=== PATIENT | male | born 1950 | race Caucasian/White ===

== ENCOUNTER → 2017-05-28 | Outpatient (CLI) | payer MEDICARE, OTHER ==
[~2017-05-28] MED LIST: ELIQUIS 5MG PO; LEXAPRO 10MG10 MG PO; PRINIVIL20 MG PO; REQUIP5 MG PO; RISPERDAL 1M1 MG/TAB PO; TOPROL XL 50MG50 MG PO; TRILEPTAL 300M300 MG PO; WELLBUTRIN XL300 M1 PO
== END ==
LOC: COL.VAS 13:39
DX: I82.4Z1 Acute embolism and thrombosis of unspecified deep veins of right distal lower extremity (principal); M79.89 Other specified soft tissue disorders

== ENCOUNTER 2017-06-04 09:18 | Day surgery (SDC) | payer MEDICARE, OTHER ==
[2017-06-04] VITALS (12 sets, daily range): BP systolic 151–183; BP diastolic 84–115; PULSE 51–72; TEMP 98.4–98.6
[~2017-06-04] VITALS: Ht 185.4 cm; Wt 114.0 kg
[2017-06-04] MEDS ORDERED: WELLBUTRIN XL300 M1 PO (10:10)
[2017-06-04] MEDS ORDERED: TRILEPTAL 300M300 MG PO (10:11)
[2017-06-04] MEDS ORDERED: TOPROL XL 50MG50 MG PO (10:12)
[2017-06-04] MEDS ORDERED: RISPERDAL 1M1 MG/TAB PO (10:12)
[2017-06-04] MEDS ORDERED: REQUIP5 MG PO (10:13)
[2017-06-04] MEDS ORDERED: PRINIVIL20 MG PO (10:14)
[2017-06-04] MEDS ORDERED: LEXAPRO 10MG10 MG PO (10:14)
[2017-06-04] MEDS ORDERED: ELIQUIS 5MG PO (10:15)
[2017-06-04 10:39] LABS: HEMOGLOBIN 14.9 g/dl (13.5-18.0); MEAN CELL VOLUME 92 fl (80.0-100.0); MEAN CORPUSCULAR HEMOGLOBIN 34 pg (27.0-31.0); MEAN CORPUSCULAR HGB CONC 36 g/dl (33.0-37.0); MEAN PLATELET VOLUME 9.3 fl (7.4-10.4); PLATELET COUNT 136 K/mm3 (130-400); RED BLOOD COUNT 4.44 M/mm3 (4.20-5.60); REDCELL DISTRIBUTION WIDTH-CV 12.8 % (11.5-14.5); WHITE BLOOD COUNT 5.1 K/mm3 (4.8-10.8)
[2017-06-04 10:52] LABS: CREATININE, serum 0.97 mg/dL (0.66-1.25)
[2017-06-04 10:53] LABS: PROTHROMBIN TIME 11.3 SECONDS (9.7-12.8)
== END 2017-06-04 17:20 | disposition home or self-care (01) ==
LOC: COL.CAR 09:18
PROVIDERS: Radiology Diagnostic Radiology
DX: I82.411 Acute embolism and thrombosis of right femoral vein (principal); I82.431 Acute embolism and thrombosis of right popliteal vein; I10 Essential (primary) hypertension; I77.1 Stricture of artery; N52.03 Combined arterial insufficiency and corporo-venous occlusive erectile dysfunction; G25.81 Restless legs syndrome; E11.9 Type 2 diabetes mellitus without complications; G47.33 Obstructive sleep apnea (adult) (pediatric); F31.9 Bipolar disorder, unspecified; N40.0 Benign prostatic hyperplasia without lower urinary tract symptoms; Z87.891 Personal history of nicotine dependence
CPT/HCPCS: C1757; C1769; C1887; C1894; J0360; J1644; J2250; J2997; J3010; J7030; J7120; Q9967

== ENCOUNTER 2017-11-10 19:51 | Emergency (ER) | payer MEDICARE, OTHER ==
[~2017-11-10] VITALS: Ht 185.4 cm; Wt 113.6 kg
[2017-11-10 19:54] VITALS: BP 151/77; TEMP 100.3
[2017-11-10 21:00] LABS: INFLUENZA A POSITIVE; INFLUENZA B NEGATIVE
[2017-11-10] MEDS ORDERED: TESSALON P100 MG/CAP PO (21:05)
[2017-11-10] MEDS ORDERED: TAMIFLU 75MG75 MG PO (21:15)
[2017-11-10 21:40] VITALS: PULSE 89
== END 2017-11-10 21:40 | disposition home or self-care (01) ==
LOC: COL.ER 19:51
PROVIDERS: Physician Assistant
DX: J09.X9 Influenza due to identified novel influenza A virus with other manifestations (principal); I10 Essential (primary) hypertension; F32.9 Major depressive disorder, single episode, unspecified; F41.9 Anxiety disorder, unspecified; I82.409 Acute embolism and thrombosis of unspecified deep veins of unspecified lower extremity; Z87.891 Personal history of nicotine dependence; Z79.01 Long term (current) use of anticoagulants

== ENCOUNTER → 2017-11-23 | Outpatient (CLI) | payer MEDICARE, OTHER ==
[~2017-11-23] MED LIST changes: +TAMIFLU 75MG75 MG PO; +TESSALON P100 MG/CAP PO
== END ==
LOC: COL.RAD 07:25
DX: I77.810 Thoracic aortic ectasia (principal)
CPT/HCPCS: J7050; Q9967

== ENCOUNTER → 2017-12-08 | Outpatient (CLI) | payer MEDICARE, OTHER | LOC: COL.VAS 12:25 | DX: I82.531 Chronic embolism and thrombosis of right popliteal vein (principal) ==

== ENCOUNTER → 2018-05-12 | Outpatient (CLI) | payer MEDICARE, OTHER | LOC: COL.PUL 07:36 | DX: R06.02 Shortness of breath (principal); R06.2 Wheezing ==

== ENCOUNTER 2018-06-03 02:20 | Emergency (ER) | payer MEDICARE, OTHER ==
[~2018-06-03] VITALS: Ht 185.4 cm; Wt 115.9 kg
[2018-06-03 02:23] VITALS: BP 138/77; TEMP 97.8
[2018-06-03] MEDS ORDERED: NORCO 325 MG-51 TAB PO (02:42)
[2018-06-03 02:59] VITALS: PULSE 80
== END 2018-06-03 02:59 | disposition home or self-care (01) ==
LOC: COL.ER 02:20
DX: M26.621 Arthralgia of right temporomandibular joint (principal)

== ENCOUNTER → 2019-03-10 | Outpatient (CLI) | payer MEDICARE, OTHER ==
[~2019-03-10] MED LIST changes: +NORCO 325 MG-51 TAB PO
== END ==
LOC: COL.RAD 08:38
DX: R56.9 Unspecified convulsions (principal); R41.82 Altered mental status, unspecified
CPT/HCPCS: A9585

== ENCOUNTER → 2019-04-25 | Outpatient (CLI) | payer MEDICARE, OTHER | LOC: COL.CARD 09:02 | DX: R56.9 Unspecified convulsions (principal) ==

== ENCOUNTER → 2019-11-14 | Outpatient (CLI) | payer MEDICARE, OTHER | LOC: COL.RAD 06:47 | DX: K21.9 Gastro-esophageal reflux disease without esophagitis (principal) | CPT/HCPCS: A9541 ==

== ENCOUNTER → 2019-11-29 | Outpatient (CLI) | payer MEDICARE, OTHER | LOC: COL.RAD 06:59 | DX: K21.9 Gastro-esophageal reflux disease without esophagitis (principal) ==

== ENCOUNTER → 2020-01-19 | Outpatient (CLI) | payer MEDICARE, OTHER | LOC: COL.RAD 09:19 | DX: R68.81 Early satiety (principal); R10.13 Epigastric pain | CPT/HCPCS: A9537; J2805 ==

== ENCOUNTER 2020-12-10 21:12 | Emergency (ER) | payer MEDICARE, OTHER ==
[~2020-12-10] VITALS: Ht 182.9 cm; Wt 111.4 kg
[2020-12-10 21:18] VITALS: TEMP 98.3
[2020-12-10] MEDS ORDERED: CLEOCIN HCL300 MG PO (21:35)
[2020-12-10 22:08] VITALS: BP 126/83; PULSE 86
== END 2020-12-10 22:21 | disposition home or self-care (01) ==
LOC: COL.ER 21:12
DX: L03.032 Cellulitis of left toe (principal); M26.621 Arthralgia of right temporomandibular joint; J10.1 Influenza due to other identified influenza virus with other respiratory manifestations; Z88.1 Allergy status to other antibiotic agents

== ENCOUNTER 2022-04-14 07:53 | Day surgery (SDC) | payer MEDICARE, OTHER ==
[~2022-04-14] VITALS: Ht 182.9 cm; Wt 109.1 kg
[~2022-04-14 07:53] MED LIST changes: +CLEOCIN HCL300 MG PO
[2022-04-14 08:36] VITALS: BP 108/69; PULSE 72; TEMP 98.5
[2022-04-14] MEDS ORDERED: LOTENSIN40 MG PO (08:47)
[2022-04-14] MEDS ORDERED: PROVENTIL0.09 MG/A1 IH (08:48)
[2022-04-14] MEDS ORDERED: ZYLOPRIM 100MG100 MG PO (08:48)
[2022-04-14] MEDS ORDERED: CALCIPOTRIENE0.0051 TP (08:50)
[2022-04-14] MEDS ORDERED: RETIN-A CR0.1 45GM TP (08:51)
[2022-04-14] MEDS ORDERED: TEMOVATE0.05% TP (08:51)
[2022-04-14] MEDS ORDERED: [UNRECOGNIZED DRUG - OTHER] TOP (08:53)
[2022-04-14] MEDS ORDERED: LOPRESSOR 550 MG/TAB PO (08:53)
[2022-04-14] MEDS ORDERED: 00186-0372-20 IH (09:00)
[2022-04-14] MEDS ORDERED: ASPIRIN E.C. 8181 MG PO (09:01)
[2022-04-14] MEDS ORDERED: JANUVIA25 MG PO (09:01)
[2022-04-14 10:00] VITALS: BP 95/46; PULSE 73; TEMP 98
--- NOTE | 2022-04-14 10:00 | NUR ---
Pt returned from OR via cart to [facility]. A&O. ABD and mesh underwear in place. VSS-see flowsheet. Given a muffin and coffee per request. remains in room. Denies complaints or needs. Side rails up and call light placed in reach.
[2022-04-14 10:15] VITALS: BP 111/68; PULSE 74
[2022-04-14] MEDS ORDERED: NORCO 325 MG-51 TAB PO (10:20)
[2022-04-14 10:30] VITALS: BP 98/58; PULSE 74
[2022-04-14 10:45] VITALS: BP 107/57; PULSE 73
--- NOTE | 2022-04-14 11:20 | NUR ---
Pts VS remain stable. Tolerated oral intake. Denies pain or other complaints. IV removed, pressure dressing applied. Pt dressed independently. DC teaching completed, pt and pts verbalized understanding. Pt taken via wheelchair to private vehicle for dc home with to drive. Pt left with all personal belongings.
== END 2022-04-14 11:20 | disposition home or self-care (01) ==
LOC: SDCO 07:53
DX: K64.5 Perianal venous thrombosis (principal); K64.0 First degree hemorrhoids; I10 Essential (primary) hypertension; E11.9 Type 2 diabetes mellitus without complications; G47.33 Obstructive sleep apnea (adult) (pediatric); F31.9 Bipolar disorder, unspecified; R56.9 Unspecified convulsions; Z79.84 Long term (current) use of oral hypoglycemic drugs; Z87.891 Personal history of nicotine dependence; Z79.82 Long term (current) use of aspirin; Z79.51 Long term (current) use of inhaled steroids
CPT/HCPCS: J2704; J3010

== ENCOUNTER 2022-11-24 10:47 | Emergency (ER) | payer MEDICARE, OTHER ==
[~2022-11-24] VITALS: Ht 185.4 cm; Wt 111.4 kg
[~2022-11-24 10:47] MED LIST changes: +00186-0372-20 IH; +ASPIRIN E.C. 8181 MG PO; +CALCIPOTRIENE0.0051 TP; +JANUVIA25 MG PO; +LOPRESSOR 550 MG/TAB PO; +LOTENSIN40 MG PO; +PROVENTIL0.09 MG/A1 IH; +RETIN-A CR0.1 45GM TP; +TEMOVATE0.05% TP; +ZYLOPRIM 100MG100 MG PO; +[UNRECOGNIZED DRUG - OTHER] TOP
[2022-11-24 11:02] VITALS: TEMP 98.2
[2022-11-24 12:11] LABS: HEMATOCRIT 42.5 % (42.0-52.0); HEMOGLOBIN 15.2 g/dl (13.5-18.0); MEAN CELL VOLUME 94 fl (80.0-100.0); MEAN CORPUSCULAR HEMOGLOBIN 34 pg (27-31); MEAN CORPUSCULAR HGB CONC 36 g/dl (33.0-37.0); MEAN PLATELET VOLUME 9.7 fl (7.4-10.4); PLATELET COUNT 161 K/mm3 (130-400); RED BLOOD COUNT 4.54 M/mm3 (4.20-5.60); REDCELL DISTRIBUTION WIDTH-CV 13.6 % (11.5-14.5)
[2022-11-24 12:17] LABS: ACETONE,SERUM NEGATIVE
[2022-11-24 12:19] LABS: ALBUMIN 3.6 gm/dL (3.4-4.8); ANION GAP 13 mmol/L (7-16); BLOOD UREA NITROGEN 38 mg/dL (8-26); CALCIUM 9.5 mg/dL (8.4-10.2); CARBON DIOXIDE 23 mmol/L (23-31); CHLORIDE 100 mmol/L (98-107); CREATININE, serum 1.57 mg/dL (0.72-1.25); GLUCOSE 374 mg/dL (70-99); MAGNESIUM 2.2 mg/dL (1.6-2.6); PHOSPHOROUS 4.4 mg/dL (2.3-4.7); POTASSIUM 4.8 mmol/L (3.5-4.5); SODIUM 136 mmol/L (136-145)
[2022-11-24 12:48] LABS: BAND 17 % (0-10); EOSINOPHIL 2 % (0-4); NEUTROPHILS 70 % (42.0-75.2)
[2022-11-24 12:50] LABS: LYMPHOCYTE 6 % (20.0-51.0); PLATELET ESTIMATE NORMAL (NORMAL)
[2022-11-24 12:52] VITALS: BP 122/82; PULSE 67
[2022-12-02] MEDS ORDERED: FLOMAX 0.40.4 MG/CAP PO (09:38)
[2022-12-02] MEDS ORDERED: NEURONTIN300 MG/CAP PO (10:15)
[2022-12-02] MEDS ORDERED: DYAZIDE 25 MG-31 CAP PO (10:16)
[2022-12-05] MEDS ORDERED: TOPROL XL 50MG50 MG PO (08:56)
[2022-12-05] MEDS ORDERED: FLAGYL500 MG PO (09:00)
[2022-12-05] MEDS ORDERED: OMNICEF 300MG300 MG PO (09:01)
== END 2022-11-24 12:59 | disposition home or self-care (01) ==
LOC: COL.ER 10:47
PROVIDERS: Emergency Medicine
DX: E09.65 Drug or chemical induced diabetes mellitus with hyperglycemia (principal); T38.0X5A Adverse effect of glucocorticoids and synthetic analogues, initial encounter; J44.1 Chronic obstructive pulmonary disease with (acute) exacerbation
CPT/HCPCS: J7120

== ENCOUNTER 2024-06-26 10:05 | Inpatient (IN) | payer MEDICARE, OTHER ==
[2024-06-26] VITALS (8 sets, daily range): BP systolic 101–136; BP diastolic 54–85; PULSE 69–128; TEMP 98.6–99.6
[~2024-06-26] VITALS: Ht 182.9 cm; Wt 112.7 kg
[~2024-06-26 10:05] MED LIST changes: +DYAZIDE 25 MG-31 CAP PO; +FLAGYL500 MG PO; +FLOMAX 0.40.4 MG/CAP PO; -JANUVIA25 MG PO; +JANUVIA50 MG PO; +NEURONTIN300 MG/CAP PO; +OMNICEF 300MG300 MG PO
[2024-06-26] MEDS ORDERED: dilTIAZem 25 MG/5 ML VIAL IV ONE ×2 (10:30→10:45)
[2024-06-26] MEDS ORDERED: NS 1,000 ML IV ONE ×2 (10:30→11:45)
[2024-06-26 10:32] LABS: BASO % 0.4 % (0.0-2.0); EOS # 0.1 K/mm3 (0.0-0.7); EOS % 1.6 % (0.0-4.0); GRAN # 7.3 K/mm3 (1.4-6.5); GRAN % 82.3 % (42.2-75.2); HEMATOCRIT 45.9 % (42.0-52.0); HEMOGLOBIN 16.2 g/dl (13.5-18.0); LYMPH # 0.7 K/mm3 (1.2-3.4); LYMPH % 7.5 % (20.0-51.0); MEAN CELL VOLUME 95 fl (80.0-100.0); MEAN CORPUSCULAR HEMOGLOBIN 34 pg (27-31); MEAN CORPUSCULAR HGB CONC 35 g/dl (33.0-37.0); MEAN PLATELET VOLUME 10.3 fl (7.4-10.4); MONO # 0.7 K/mm3 (0.1-0.6); MONO % 7.8 % (1.7-9.3); PLATELET COUNT 145 K/mm3 (130-400); RED BLOOD COUNT 4.84 M/mm3 (4.20-5.60)
[2024-06-26 10:55] LABS: ALBUMIN 3.6 g/dL (3.4-4.8); BILIRUBIN,TOTAL 10.4 mg/dL (0.2-1.2); CREATININE, serum 1.35 mg/dL (0.72-1.25); POTASSIUM 4.1 mEq/L (3.5-4.5); TOTAL PROTEIN 7.2 g/dl (6.2-8.1)
[2024-06-26 11:01] LABS: TROPONIN-I 0.022 ng/mL (0.00-0.033)
[2024-06-26] MEDS ORDERED: Iohexol 300 - 100 ML VIAL IV ONE (12:53)
[2024-06-26] MEDS ORDERED: Digoxin 0.25 MG/ML 2 ML VIAL IV ONE (13:00)
[2024-06-26] MEDS ORDERED: AMITRIPTYLINE H25 M1 PO (13:48)
[2024-06-26] MEDS ORDERED: LOPRESSOR 550 MG/TAB PO (13:49)
[2024-06-26] MEDS ORDERED: PLAVIX 75MG TAB75 MG PO (13:51)
[2024-06-26] MEDS ORDERED: RT ADVAIR HFA 1112 G IH (13:52)
[2024-06-26] MEDS ORDERED: [UNRECOGNIZED DRUG - OTHER] IM (13:55)
[2024-06-26] MEDS ORDERED: *Potassium Replacement Protocol MC SCH (14:30)
[2024-06-26] MEDS ORDERED: NS 1,000 ML IV SCH (14:30)
[2024-06-26] MEDS ORDERED: Escitalopram 10 MG TAB PO SCH (15:40)
[2024-06-26] MEDS ORDERED: Clopidogrel 75 MG TAB PO SCH (15:40)
[2024-06-26] MEDS ORDERED: LANTUS SOLOS100 U/ML SQ (15:54)
[2024-06-26] MEDS ORDERED: Glucagon 1 MG VIAL IM PRN (16:00)
[2024-06-26] MEDS ORDERED: Dextrose (Glucose) 15 GM (4 x 3.75 GM) Chewable TABLET PACK PO PRN (16:00)
[2024-06-26] MEDS ORDERED: Dextrose 50% Water 25 GM/50 ML SYRINGE IV PRN (16:00)
[2024-06-26] MEDS ORDERED: LORazepam 2 MG/ML 1 ML VIAL IV PRN (17:00)
[2024-06-26] MEDS ORDERED: Mag/Al Hydrox/Simeth Susp 30 ML CUP PO PRN (17:00)
[2024-06-26] MEDS ORDERED: Multivitamin TAB PO SCH (17:00)
[2024-06-26 17:32] LABS: INR 1.1 (0.8-3.0); PROTHROMBIN TIME 12.2 SECONDS (9.7-12.8)
[2024-06-26 17:35] LABS: PARTIAL THROMBOPLASTIN TIME 29.5 SECONDS (26.0-37.0)
[2024-06-26] MEDS ORDERED: Insulin Lispro (HumaLOG) SQ SCH (18:00)
[2024-06-26] MEDS ORDERED: Metoprolol Tartrate 50 MG TAB PO SCH ×2 (21:00)
[2024-06-26] MEDS ORDERED: Thiamine 100 MG TAB PO SCH (21:00)
[2024-06-26] MEDS ORDERED: Gabapentin 300 MG CAP PO SCH (21:00)
[2024-06-26] MEDS ORDERED: rOPINIRole 1 MG TAB PO SCH (21:00)
[2024-06-27] VITALS (12 sets, daily range): BP systolic 104–150; BP diastolic 56–74; PULSE 59–66; TEMP 97.8–98.8
[2024-06-27] MEDS ORDERED: NS 1,000 ML IV SCH (06:00)
[2024-06-27 06:30] LABS: BASO % 0.3 % (0.0-2.0); EOS # 0.1 K/mm3 (0.0-0.7); EOS % 1.9 % (0.0-4.0); GRAN # 4.8 K/mm3 (1.4-6.5); GRAN % 80.6 % (42.2-75.2); LYMPH # 0.5 K/mm3 (1.2-3.4); LYMPH % 7.8 % (20.0-51.0); MEAN CELL VOLUME 92 fl (80.0-100.0); MEAN CORPUSCULAR HGB CONC 36 g/dl (33.0-37.0); MEAN PLATELET VOLUME 10.2 fl (7.4-10.4); MONO # 0.5 K/mm3 (0.1-0.6); MONO % 8.7 % (1.7-9.3); PLATELET COUNT 119 K/mm3 (130-400); RED BLOOD COUNT 3.97 M/mm3 (4.20-5.60)
[2024-06-27 06:36] LABS: HEMATOCRIT 36.6 % (42.0-52.0); HEMOGLOBIN 13.2 g/dl (13.5-18.0); MEAN CORPUSCULAR HEMOGLOBIN 33 pg (27-31)
[2024-06-27 06:49] LABS: ALBUMIN 2.7 g/dL (3.4-4.8); CALCIUM 8.7 mg/dL (8.4-10.2); CREATININE, serum 1.27 mg/dL (0.72-1.25); MAGNESIUM 1.6 mg/dL (1.6-2.6); PHOSPHOROUS 2.4 mg/dL (2.3-4.7); POTASSIUM 3.9 mEq/L (3.5-4.5)
[2024-06-27] MEDS ORDERED: Folic Acid 1 MG TAB PO SCH (09:00)
[2024-06-27] MEDS ORDERED: Allopurinol 100 MG TAB PO SCH (09:00)
[2024-06-27] MEDS ORDERED: Magnesium Oxide 400 MG TAB PO SCH (09:38)
[2024-06-27 09:42] LABS: ALBUMIN 2.9 g/dL (3.4-4.8); BILIRUBIN,TOTAL 9.6 mg/dL (0.2-1.2); CALCIUM 9.1 mg/dL (8.4-10.2); CREATININE, serum 1.34 mg/dL (0.72-1.25); POTASSIUM 3.8 mEq/L (3.5-4.5); TOTAL PROTEIN 6.2 g/dl (6.2-8.1)
[2024-06-27] MEDS ORDERED: Potassium Chloride 100 ML IV SCH (10:00)
[2024-06-27] MEDS ORDERED: *Potassium Replacement Protocol MC SCH (10:00)
[2024-06-27 10:55] LABS: COLLECTION METHOD CLEAN CATCH
[2024-06-27 11:17] LABS: URINE COLOR Amber (YELLOW)
[2024-06-27 11:18] LABS: PH 5.5 (5.0-8.5); URINE APPEARANCE CLOUDY (CLEAR/HAZY); URINE BLOOD NEGATIVE (NEGATIVE); URINE GLUCOSE NEGATIVE (NEGATIVE); URINE KETONE TRACE (NEGATIVE); URINE NITRATE NEGATIVE (NEGATIVE); URINE PROTEIN(semi-quant) 2+ (BEGATIVE)
[2024-06-27] MEDS ORDERED: Lidocaine PF 2% (20 MG/ML) 5 ML VIAL ONE (11:39)
[2024-06-27] MEDS ORDERED: Iohexol 350 - 100 ML VIAL BILE DUCT ONE (12:14)
[2024-06-27] MEDS ORDERED: Ondansetron 4 MG/2 ML VIAL IV PRN (14:00)
[2024-06-27] MEDS ORDERED: Acetaminophen 325 MG TAB PO PRN (14:00)
[2024-06-27] MEDS ORDERED: Gabapentin 300 MG CAP PO SCH (21:00)
[2024-06-28 01:01] VITALS: BP_SYST 135
[2024-06-28 03:53] VITALS: BP 154/88; PULSE 63; TEMP 98.2
[2024-06-28 04:02] VITALS: BP_SYST 154
[2024-06-28 06:28] LABS: ALBUMIN 2.7 g/dL (3.4-4.8); BILIRUBIN,TOTAL 6.6 mg/dL (0.2-1.2); CALCIUM 8.8 mg/dL (8.4-10.2); CREATININE, serum 1.09 mg/dL (0.72-1.25); MAGNESIUM 1.7 mg/dL (1.6-2.6); POTASSIUM 3.8 mEq/L (3.5-4.5); TOTAL PROTEIN 5.8 g/dl (6.2-8.1)
[2024-06-28 06:32] LABS: BASO % 0.2 % (0.0-2.0); EOS # 0.2 K/mm3 (0.0-0.7); EOS % 2.5 % (0.0-4.0); GRAN # 4.9 K/mm3 (1.4-6.5); GRAN % 81.3 % (42.2-75.2); HEMATOCRIT 36.2 % (42.0-52.0); HEMOGLOBIN 12.9 g/dl (13.5-18.0); LYMPH # 0.4 K/mm3 (1.2-3.4); LYMPH % 7.3 % (20.0-51.0); MEAN CELL VOLUME 93 fl (80.0-100.0); MEAN CORPUSCULAR HEMOGLOBIN 33 pg (27-31); MEAN CORPUSCULAR HGB CONC 36 g/dl (33.0-37.0); MEAN PLATELET VOLUME 10.2 fl (7.4-10.4); MONO # 0.5 K/mm3 (0.1-0.6); MONO % 7.9 % (1.7-9.3); PLATELET COUNT 135 K/mm3 (130-400); RED BLOOD COUNT 3.89 M/mm3 (4.20-5.60); REDCELL DISTRIBUTION WIDTH-CV 13.9 % (11.5-14.5)
[2024-06-28 07:26] VITALS: BP 129/75; PULSE 62; TEMP 98
[2024-06-28] MEDS ORDERED: *Potassium Replacement Protocol MC SCH (07:45)
[2024-06-28] MEDS ORDERED: Potassium Bicarbonate/Citrate 20 MEQ Effervescent TAB PO ONE (07:45)
[2024-06-28 09:00] VITALS: BP_SYST 129
[2024-06-28] MEDS ORDERED: LOPRESSOR100 MG PO (09:28)
[2024-06-28] MEDS ORDERED: FOLIC ACID 11 MG/TA1 PO (09:29)
[2024-06-28] MEDS ORDERED: THIAMINE 1100 MG/TAB PO (09:29)
[2024-06-28] MEDS ORDERED: DUO-KAPS1 CAP PO (09:29)
[2024-06-28] MEDS ORDERED: LEVAQUIN 750MG750 M1 PO (09:30)
== END 2024-06-28 11:30 | disposition home or self-care (01) | DRG 309 ==
LOC: COL.ER 10:05 → MEDICAL 14:03
PROVIDERS: Physician Assistant; ADMIT Internal Medicine
PROC: 0F798DZ Dilation of Common Bile Duct with Intraluminal Device, Via Natural or Artificial Opening Endoscopic (ICD-10-PCS; principal; 2024-06-26)
DX: I48.91 Unspecified atrial fibrillation (principal); K83.09 Other cholangitis; N17.9 Acute kidney failure, unspecified; N18.9 Chronic kidney disease, unspecified; D64.9 Anemia, unspecified; F10.90 Alcohol use, unspecified, uncomplicated; I10 Essential (primary) hypertension; E11.51 Type 2 diabetes mellitus with diabetic peripheral angiopathy without gangrene; N40.0 Benign prostatic hyperplasia without lower urinary tract symptoms; F32.A Depression, unspecified; G25.81 Restless legs syndrome; Z79.84 Long term (current) use of oral hypoglycemic drugs; K26.7 Chronic duodenal ulcer without hemorrhage or perforation
CPT/HCPCS: C1769; C2625; J1160; J1815; J2405; J2543; J2704; J3480; J7030; Q9967

== ENCOUNTER 2024-07-22 10:14 | Emergency (ER) | payer MEDICARE, OTHER ==
[~2024-07-22] VITALS: Wt 111.4 kg
[~2024-07-22 10:14] MED LIST changes: +AMITRIPTYLINE H25 M1 PO; +DUO-KAPS1 CAP PO; +FOLIC ACID 11 MG/TA1 PO; +LANTUS SOLOS100 U/ML SQ; +LEVAQUIN 750MG750 M1 PO; +LOPRESSOR100 MG PO; +PLAVIX 75MG TAB75 MG PO; +RT ADVAIR HFA 1112 G IH; +THIAMINE 1100 MG/TAB PO; +[UNRECOGNIZED DRUG - OTHER] IM
[2024-07-22 10:18] VITALS: TEMP 97.6
[2024-07-22 10:41] LABS: BASO % 0.7 % (0.0-2.0); EOS # 0.3 K/mm3 (0.0-0.7); EOS % 5.7 % (0.0-4.0); GRAN # 4.2 K/mm3 (1.4-6.5); GRAN % 71.4 % (42.2-75.2); HEMATOCRIT 43.4 % (42.0-52.0); HEMOGLOBIN 14.7 g/dl (13.5-18.0); LYMPH # 0.8 K/mm3 (1.2-3.4); LYMPH % 13.8 % (20.0-51.0); MEAN CELL VOLUME 96 fl (80.0-100.0); MEAN CORPUSCULAR HEMOGLOBIN 33 pg (27-31); MEAN CORPUSCULAR HGB CONC 34 g/dl (33.0-37.0); MEAN PLATELET VOLUME 10.3 fl (7.4-10.4); MONO # 0.5 K/mm3 (0.1-0.6); MONO % 8.1 % (1.7-9.3); PLATELET COUNT 145 K/mm3 (130-400); RED BLOOD COUNT 4.52 M/mm3 (4.20-5.60); REDCELL DISTRIBUTION WIDTH-CV 13.2 % (11.5-14.5)
[2024-07-22] MEDS ORDERED: dilTIAZem 25 MG/5 ML VIAL IV ONE (10:45)
[2024-07-22] MEDS ORDERED: NS 500 ML IV ONE (11:15)
[2024-07-22 11:17] LABS: ALANINE AMINOTRANSFERASE 42 U/L (0-55); ALBUMIN 3.7 g/dL (3.4-4.8); ALKALINE PHOSPHATASE 61 U/L (40-150); ANION GAP 13 mmol/L (7-16); AST,SGOT 33 U/L (5-34); BLOOD UREA NITROGEN 19 mg/dL (8-26); CALCIUM 9.5 mg/dL (8.4-10.2); CHLORIDE 108 mEq/L (98-107); CREATININE, serum 1.34 mg/dL (0.72-1.25); GLUCOSE 129 mg/dL (70-99); POTASSIUM 4.6 mEq/L (3.5-4.5); SODIUM 142 mEq/L (136-145); TOTAL PROTEIN 7.1 g/dl (6.2-8.1)
[2024-07-22 11:24] LABS: TROPONIN-I < 0.010 ng/mL (0.00-0.033)
[2024-07-22] MEDS ORDERED: CARDIZEM CD 12120 MG PO ×2 (11:58→14:21)
[2024-07-22 12:02] VITALS: BP 115/62; PULSE 66
== END 2024-07-22 12:19 | disposition home or self-care (01) ==
LOC: COL.ER 10:14
PROVIDERS: Personal Emergency Response Attendant
DX: I10 Essential (primary) hypertension (principal); I48.91 Unspecified atrial fibrillation; Z79.899 Other long term (current) drug therapy
CPT/HCPCS: J7040